=== PATIENT | male | born 1935 | race Caucasian/White ===

== ENCOUNTER 2023-01-24 20:21 | Inpatient (IN) | payer OTHER ==
[~2023-01-24] VITALS: Ht 188 cm; Wt 120.2 kg
[2023-01-24 20:26] VITALS: BP_SYST 149; PULSE 86; RESP 18; TEMP 98; O2SAT 98
[2023-01-24] MEDS ORDERED: NACL 0.9% 1,000 ML IV ONE (20:30)
[2023-01-24 20:58] LABS: BASOPHILS # (AUTO) 0.1 K/uL (0.0-0.2); BASOPHILS % (AUTO) 0.8 % (0.0-2.0); EOSINOPHILS # (AUTO) 0.5 K/uL (0.0-0.4); HEMATOCRIT 43.1 % (36-54); HEMOGLOBIN 13.4 g/dL (14.0-18.0); LYMPHOCYTES # (AUTO) 1.4 K/uL (1.0-5.5); LYMPHOCYTES % (AUTO) 17.5 % (20.5-51.5); MEAN CORPUSCULAR HEMOGLOBIN 30 pg (27-31); MEAN CORPUSCULAR HGB CONC 31 % (32-36); MEAN CORPUSCULAR VOLUME 96 fL (79.0-98.0); MONOCYTES # (AUTO) 0.9 K/uL (0.0-1.0); NEUTROPHILS # (AUTO) 4.9 K/uL (1.8-7.7); NEUTROPHILS % (AUTO) 62.7 % (40.0-70.0); PLATELET COUNT (AUTO) 406 K/uL (130-430); RED BLOOD CELL COUNT(AUTO) 4.49 MIL/uL (4.2-6.2); RED CELL DISTRIBUTION WIDTH 16.6 % (9.0-15.0); WHITE BLOOD COUNT (AUTO) 7.8 K/uL (4.8-10.8)
[2023-01-24 21:11] LABS: ANION GAP 4 (5-15); CALCIUM 9.1 mg/dL (8.4-11.0); CARBON DIOXIDE 35 mmol/L (23-29); CHLORIDE 105 mmol/L (98-107); CREATININE 1.74 mg/dL (0.55-1.30); GLUCOSE 139 mg/dL (74-106); SODIUM SERUM 144 mmol/L (136-145); UREA NITROGEN, BLOOD 25 mg/dL (8-21)
[2023-01-24 21:17] LABS: PROTHROMBIN TIME 10.4 SECS (9.5-12.5)
[2023-01-24 21:19] LABS: ALANINE AMINOTRANSFERASE 27 U/L (12-78); ASPARTATE AMINOTRANSFERASE 26 U/L (10-37); TOTAL BILIRUBIN 0.9 mg/dL (0.0-1.0); TOTAL PROTEIN, SERUM 7.1 g/dL (6.4-8.3)
[2023-01-24 22:08] LABS: INFLUENZA TYPE A negative (NEGATIVE); INFLUENZA TYPE B NEGATIVE (NEGATIVE)
[2023-01-24 22:49] LABS: BILIRUBIN,URINE 1+ (NEGATIVE); BLOOD, URINE NEGATIVE (NEGATIVE); CLARITY/URINE Clear (CLEAR); COLOR,URINE YELLOW (YELLOW); GLUCOSE,URINE NEGATIVE (NEGATIVE); KETONES,URINE NEGATIVE (NEGATIVE); LEUKOCYTE ESTERASE ,URINE NEGATIVE (NEGATIVE); NITRITE, URINE NEGATIVE (NEGATIVE); PH,URINE 6.5 (5.0-8.0); PROTEIN URINE 1+ (NEGATIVE)
[2023-01-24 23:39] LABS: BACTERIA,URINE FEW /HPF (None Seen); RBC,URINE 0-3 /HPF (0-3); WBC,URINE 0-3 /HPF (0-3)
[2023-01-24 23:40] LABS: MUCUS,URINE 3+ /LPF (None Seen)
[2023-01-25] VITALS: BP_SYST 142; PULSE 78; RESP 18; TEMP 97.8; O2SAT 97
[2023-01-25 00:15] VITALS: BP_SYST 133; PULSE 88; RESP 18; TEMP 97.6; O2SAT 97
[2023-01-25] MEDS: D5/0.45 NS 1,000 ML IV SCH (01:49)
[2023-01-25] MEDS ORDERED: FER300L PO (02:40)
[2023-01-25] MEDS ORDERED: TAMS-11 PO (02:40)
[2023-01-25] MEDS ORDERED: ASPI-859 PO (02:40)
[2023-01-25] MEDS ORDERED: IPRA4AER INH (02:40)
[2023-01-25] MEDS ORDERED: MELA3TAB69 PO (02:40)
[2023-01-25] MEDS ORDERED: MULT-1117 PO (02:40)
[2023-01-25] MEDS ORDERED: FURO10SO PO (02:40)
[2023-01-25] MEDS ORDERED: LIP40 PO (02:40)
[2023-01-25] MEDS ORDERED: NOR10 PO (02:40)
[2023-01-25] MEDS ORDERED: BISA10SU61 RC (02:40)
[2023-01-25] MEDS ORDERED: FOLI-43 PO (02:40)
[2023-01-25] MEDS ORDERED: MOM PO (02:40)
[2023-01-25] MEDS ORDERED: BUDE6.9H INH (02:40)
[2023-01-25] MEDS ORDERED: ZINC50TA15 PO (02:40)
[2023-01-25] MEDS ORDERED: IBUP-1969 PO (02:40)
[2023-01-25] MEDS ORDERED: LORazepam 2 MG/ML VIAL IVP ONE (03:15)
[2023-01-25] MEDS ORDERED: FERR-69 PO (06:34)
[2023-01-25] MEDS ORDERED: ZINC220T3 PO (06:36)
[2023-01-25 09:11] LABS: BASOPHILS % (AUTO) 0.5 % (0.0-2.0); EOSINOPHILS # (AUTO) 0.6 K/uL (0.0-0.4); EOSINOPHILS % (AUTO) 8.4 % (0.0-4.0); HEMATOCRIT 44.2 % (36-54); HEMOGLOBIN 13.4 g/dL (14.0-18.0); LYMPHOCYTES # (AUTO) 1.5 K/uL (1.0-5.5); MEAN CORPUSCULAR HEMOGLOBIN 30 pg (27-31); MEAN CORPUSCULAR HGB CONC 30 % (32-36); MEAN CORPUSCULAR VOLUME 98 fL (79.0-98.0); MONOCYTES % (AUTO) 14.1 % (1.7-9.3); NEUTROPHILS # (AUTO) 4.1 K/uL (1.8-7.7); PLATELET COUNT (AUTO) 351 K/uL (130-430); RED BLOOD CELL COUNT(AUTO) 4.52 MIL/uL (4.2-6.2); RED CELL DISTRIBUTION WIDTH 17.3 % (9.0-15.0); WHITE BLOOD COUNT (AUTO) 7.3 K/uL (4.8-10.8)
[2023-01-25 09:16] LABS: ANION GAP 4 (5-15); CALCIUM 8.7 mg/dL (8.4-11.0); CARBON DIOXIDE 33 mmol/L (23-29); CHLORIDE 108 mmol/L (98-107); CREATININE 1.53 mg/dL (0.55-1.30); GLUCOSE 143 mg/dL (74-106); POTASSIUM 4.5 mmol/L (3.5-5.1); SODIUM SERUM 145 mmol/L (136-145); UREA NITROGEN, BLOOD 26 mg/dL (8-21)
[2023-01-25 09:19] LABS: ALANINE AMINOTRANSFERASE 21 U/L (12-78); ALBUMIN 2.8 g/dL (3.4-4.8); ASPARTATE AMINOTRANSFERASE 26 U/L (10-37); TOTAL BILIRUBIN 0.7 mg/dL (0.0-1.0); TOTAL PROTEIN, SERUM 6.6 g/dL (6.4-8.3)
[2023-01-25] MEDS ORDERED: LORazepam 2 MG/ML VIAL IVP PRN (11:15)
[2023-01-25 12:47] VITALS: BP_SYST 142; PULSE 89; RESP 19; TEMP 97.8; O2SAT 97
[2023-01-25 16:12] VITALS: BP_SYST 140; PULSE 82; RESP 18; TEMP 97.6; O2SAT 97
[2023-01-25 20:00] VITALS: BP_SYST 120; PULSE 100; RESP 19; TEMP 97.2; O2SAT 93
[2023-01-25] MEDS ORDERED: HYDROmorphone 1 MG/ML INJ. CARTRIDGE ONE (20:00)
[2023-01-25] MEDS: LORazepam 2 MG/ML VIAL IM PRN (20:08)
[2023-01-25] MEDS: ATORVASTATIN 20 MG TABLET PO SCH (21:00)
[2023-01-26 00:07] VITALS: BP_SYST 140; PULSE 81; RESP 18; TEMP 97.3; O2SAT 97
[2023-01-26 01:53] VITALS: O2SAT 96
[2023-01-26] MEDS: LORazepam 2 MG/ML VIAL IM PRN (02:04)
[2023-01-26 06:28] LABS: BASOPHILS % (AUTO) 0.3 % (0.0-2.0); EOSINOPHILS # (AUTO) 0.5 K/uL (0.0-0.4); EOSINOPHILS % (AUTO) 6.7 % (0.0-4.0); HEMOGLOBIN 13.1 g/dL (14.0-18.0); LYMPHOCYTES # (AUTO) 1.2 K/uL (1.0-5.5); LYMPHOCYTES % (AUTO) 15.8 % (20.5-51.5); MEAN CORPUSCULAR HEMOGLOBIN 30 pg (27-31); MEAN CORPUSCULAR HGB CONC 30 % (32-36); MEAN CORPUSCULAR VOLUME 100 fL (79.0-98.0); MONOCYTES # (AUTO) 1.2 K/uL (0.0-1.0); MONOCYTES % (AUTO) 16.9 % (1.7-9.3); NEUTROPHILS # (AUTO) 4.4 K/uL (1.8-7.7); NEUTROPHILS % (AUTO) 60.3 % (40.0-70.0); PLATELET COUNT (AUTO) 310 K/uL (130-430); RED BLOOD CELL COUNT(AUTO) 4.38 MIL/uL (4.2-6.2); RED CELL DISTRIBUTION WIDTH 17.2 % (9.0-15.0); WHITE BLOOD COUNT (AUTO) 7.3 K/uL (4.8-10.8)
[2023-01-26] MEDS: LORazepam 2 MG/ML VIAL IVP PRN (06:30)
[2023-01-26 07:45] LABS: ANION GAP 10 (5-15); CALCIUM 8.7 mg/dL (8.4-11.0); CARBON DIOXIDE 27 mmol/L (23-29); CHLORIDE 108 mmol/L (98-107); CREATININE 1.51 mg/dL (0.55-1.30); GLUCOSE 131 mg/dL (74-106); POTASSIUM 4.7 mmol/L (3.5-5.1); SODIUM SERUM 145 mmol/L (136-145); UREA NITROGEN, BLOOD 23 mg/dL (8-21)
[2023-01-26 08:00] VITALS: BP_SYST 128; PULSE 88; RESP 18; TEMP 97.9; O2SAT 96
[2023-01-26] MEDS: amLODIPine BESYLATE 10 MG TABLET PO SCH (09:00)
[2023-01-26] MEDS: ASPIRIN 81 MG TABLET(ECOTRIN) PO SCH (09:00)
[2023-01-26] MEDS: TAMSULOSIN HCL 0.4 MG CAP PO SCH (09:00)
[2023-01-26] MEDS: MULTIVITAMINS TAB 1 TABLET PO SCH (09:00)
[2023-01-26] MEDS: FOLIC ACID 1 MG TABLET PO SCH (09:00)
[2023-01-26 11:30] VITALS: BP_SYST 137; PULSE 95; RESP 22; TEMP 97.6; O2SAT 100
[2023-01-26 18:39] VITALS: BP_SYST 141; PULSE 97; RESP 20; TEMP 97.1; O2SAT 91
[2023-01-26] MEDS: ATORVASTATIN 20 MG TABLET PO SCH (20:58)
[2023-01-26 22:52] VITALS: BP_SYST 155; PULSE 92; RESP 20; TEMP 98; O2SAT 92
[2023-01-27] VITALS: BP_SYST 145; PULSE 100; RESP 20; TEMP 97.9; O2SAT 91
[2023-01-27] MEDS: LORazepam 2 MG/ML VIAL IVP PRN ×3 (00:09→16:44)
[2023-01-27 02:14] VITALS: O2SAT 92
[2023-01-27 07:19] LABS: BASOPHILS # (AUTO) 0.1 K/uL (0.0-0.2); BASOPHILS % (AUTO) 0.8 % (0.0-2.0); EOSINOPHILS # (AUTO) 0.6 K/uL (0.0-0.4); EOSINOPHILS % (AUTO) 9.4 % (0.0-4.0); HEMOGLOBIN 13.1 g/dL (14.0-18.0); LYMPHOCYTES # (AUTO) 0.8 K/uL (1.0-5.5); LYMPHOCYTES % (AUTO) 13.9 % (20.5-51.5); MEAN CORPUSCULAR HEMOGLOBIN 30 pg (27-31); MEAN CORPUSCULAR HGB CONC 31 % (32-36); MEAN CORPUSCULAR VOLUME 99 fL (79.0-98.0); MONOCYTES # (AUTO) 0.9 K/uL (0.0-1.0); MONOCYTES % (AUTO) 15.1 % (1.7-9.3); NEUTROPHILS # (AUTO) 3.7 K/uL (1.8-7.7); NEUTROPHILS % (AUTO) 60.8 % (40.0-70.0); PLATELET COUNT (AUTO) 337 K/uL (130-430); RED BLOOD CELL COUNT(AUTO) 4.36 MIL/uL (4.2-6.2); RED CELL DISTRIBUTION WIDTH 17.1 % (9.0-15.0); WHITE BLOOD COUNT (AUTO) 6.1 K/uL (4.8-10.8)
[2023-01-27 07:38] LABS: ANION GAP 5 (5-15); CALCIUM 9.1 mg/dL (8.4-11.0); CARBON DIOXIDE 32 mmol/L (23-29); CHLORIDE 112 mmol/L (98-107); CREATININE 1.32 mg/dL (0.55-1.30); GLUCOSE 112 mg/dL (74-106); POTASSIUM 4.5 mmol/L (3.5-5.1); SODIUM SERUM 149 mmol/L (136-145); UREA NITROGEN, BLOOD 20 mg/dL (8-21)
[2023-01-27] MEDS: D5/0.45 NS 1,000 ML IV SCH ×3 (07:48→11:54)
[2023-01-27] MEDS: FOLIC ACID 1 MG TABLET PO SCH (08:01)
[2023-01-27] MEDS: amLODIPine BESYLATE 10 MG TABLET PO SCH (08:01)
[2023-01-27] MEDS: ASPIRIN 81 MG TABLET(ECOTRIN) PO SCH (08:01)
[2023-01-27] MEDS: MULTIVITAMINS TAB 1 TABLET PO SCH (08:01)
[2023-01-27] MEDS: TAMSULOSIN HCL 0.4 MG CAP PO SCH (08:01)
[2023-01-27 12:02] VITALS: BP_SYST 145; PULSE 118; RESP 22; TEMP 97; O2SAT 94
[2023-01-27 13:54] VITALS: O2SAT 93
[2023-01-27 16:00] VITALS: BP_SYST 154; PULSE 110; RESP 22; TEMP 97.8; O2SAT 96
[2023-01-27] MEDS: ATORVASTATIN 20 MG TABLET PO SCH (21:00)
[2023-01-28 00:44] VITALS: BP_SYST 110; PULSE 66; RESP 19; TEMP 98.4; O2SAT 96
[2023-01-28] MEDS ORDERED: cefTRIAXone 1 GM IVPB PREMIX 50 ML IV ONE (05:31)
[2023-01-28] MEDS: cefTRIAXone 1 GM in D5W 50 ML IV SCH ×2 (05:35→23:04)
[2023-01-28] MEDS: D5/0.45 NS 1,000 ML IV SCH (06:15)
[2023-01-28 08:02] VITALS: BP_SYST 161; RESP 20; TEMP 98.4; O2SAT 95
[2023-01-28] MEDS: ASPIRIN 81 MG TABLET(ECOTRIN) PO SCH (09:00)
[2023-01-28] MEDS: TAMSULOSIN HCL 0.4 MG CAP PO SCH (09:00)
[2023-01-28] MEDS: amLODIPine BESYLATE 10 MG TABLET PO SCH (09:00)
[2023-01-28] MEDS: MULTIVITAMINS TAB 1 TABLET PO SCH (09:00)
[2023-01-28] MEDS: FOLIC ACID 1 MG TABLET PO SCH (09:00)
[2023-01-28 11:30] VITALS: BP_SYST 118; PULSE 95; RESP 20; TEMP 98.1; O2SAT 91
[2023-01-28 16:52] VITALS: BP_SYST 135; PULSE 100; RESP 21; TEMP 98.6; O2SAT 92
[2023-01-28 20:00] VITALS: BP_SYST 145; PULSE 91; RESP 19; TEMP 99; O2SAT 99
[2023-01-28] MEDS: ATORVASTATIN 20 MG TABLET PO SCH (21:00)
[2023-01-29] VITALS (21 sets, daily range): BP systolic 96–163; PULSE 72–110; RESP 12–23; TEMP 96.1–98.1; O2SAT 94–100
[2023-01-29 05:35] LABS: BASOPHILS # (AUTO) 0.1 K/uL (0.0-0.2); BASOPHILS % (AUTO) 1.7 % (0.0-2.0); EOSINOPHILS # (AUTO) 0.5 K/uL (0.0-0.4); EOSINOPHILS % (AUTO) 6.5 % (0.0-4.0); HEMATOCRIT 42.3 % (36-54); HEMOGLOBIN 12.8 g/dL (14.0-18.0); LYMPHOCYTES # (AUTO) 1.2 K/uL (1.0-5.5); LYMPHOCYTES % (AUTO) 16.1 % (20.5-51.5); MEAN CORPUSCULAR HEMOGLOBIN 30 pg (27-31); MEAN CORPUSCULAR HGB CONC 30 % (32-36); MEAN CORPUSCULAR VOLUME 98 fL (79.0-98.0); MONOCYTES # (AUTO) 0.8 K/uL (0.0-1.0); MONOCYTES % (AUTO) 10.6 % (1.7-9.3); NEUTROPHILS # (AUTO) 4.8 K/uL (1.8-7.7); NEUTROPHILS % (AUTO) 65.1 % (40.0-70.0); PLATELET COUNT (AUTO) 327 K/uL (130-430); RED CELL DISTRIBUTION WIDTH 16.8 % (9.0-15.0); WHITE BLOOD COUNT (AUTO) 7.4 K/uL (4.8-10.8)
[2023-01-29 06:13] LABS: ANION GAP 6 (5-15); CALCIUM 9.1 mg/dL (8.4-11.0); CARBON DIOXIDE 34 mmol/L (23-29); CHLORIDE 111 mmol/L (98-107); CREATININE 1.23 mg/dL (0.55-1.30); GLUCOSE 102 mg/dL (74-106); POTASSIUM 4.1 mmol/L (3.5-5.1); SODIUM SERUM 151 mmol/L (136-145); UREA NITROGEN, BLOOD 17 mg/dL (8-21)
[2023-01-29 06:14] LABS: PROTHROMBIN TIME 10.5 SECS (9.5-12.5)
[2023-01-29] MEDS: D5/0.45 NS 1,000 ML IV SCH ×2 (06:33→11:59)
[2023-01-29] MEDS ORDERED: CEFAZOLIN 1 GM IVPB PREMIX 50 ML IV ONE (07:00)
[2023-01-29] MEDS: LORazepam 2 MG/ML VIAL IVP PRN (08:41)
[2023-01-29] MEDS: ASPIRIN 81 MG TABLET(ECOTRIN) PO SCH (08:48)
[2023-01-29] MEDS: amLODIPine BESYLATE 10 MG TABLET PO SCH (08:49)
[2023-01-29] MEDS: TAMSULOSIN HCL 0.4 MG CAP PO SCH (08:49)
[2023-01-29] MEDS: FOLIC ACID 1 MG TABLET PO SCH (08:49)
[2023-01-29] MEDS: MULTIVITAMINS TAB 1 TABLET PO SCH (08:49)
[2023-01-29] MEDS ORDERED: ROCURONIUM BROMIDE 10 MG/ML (ZEMURON) ONE (09:42)
[2023-01-29] MEDS ORDERED: SEVOFLURANE 15 MIN GAS INH ONE (09:42)
[2023-01-29] MEDS ORDERED: PHENYLEPHRINE HCL 10 MG/ML VIAL (NEOSYNEPHRINE) ONE (09:42)
[2023-01-29] MEDS ORDERED: ONDANSETRON HCL 4 MG/2 ML VIAL ONE (09:42)
[2023-01-29] MEDS ORDERED: SIMETHICONE 40 MG/0.6 ML ML ONE (10:01)
[2023-01-29] MEDS ORDERED: PANTOPRAZOLE SODIUM 40 MG/VIAL (PROTONIX) IVP ONE (10:30)
[2023-01-29] MEDS ORDERED: PROPOFOL DRIP 100 ML IV ONE (12:11)
[2023-01-29] MEDS: PROPOFOL DRIP 100 ML IV PRN ×4 (12:30→23:13)
[2023-01-29 15:56] LABS: ABG O2 SAT% ESTIMATE 99.7 % (94.0-100.0); BLOOD GAS BASE EXCESS 4.1 mmol/L (-3.0-3.0); BLOOD GAS HCO3 29.6 mmol/L (21.0-27.0); BLOOD GAS PCO2 47.2 mmHg (32.0-45.0); BLOOD GAS PH 7.415 (7.350-7.450); BLOOD GAS PO2 311.6 mmHg (75.0-100.0)
[2023-01-29 15:57] LABS: ALLEN'S TEST POSITIVE (P)
[2023-01-29] MEDS ORDERED: *TPN PER PHARMACY XX PRN (17:15)
[2023-01-29] MEDS: ATORVASTATIN 20 MG TABLET PO SCH (21:00)
[2023-01-29] MEDS: PANTOPRAZOLE SODIUM 40 MG/VIAL (PROTONIX) IVP SCH (21:28)
[2023-01-29] MEDS: cefTRIAXone 1 GM in D5W 50 ML IV SCH (23:11)
[2023-01-30] VITALS (34 sets, daily range): BP systolic 78–139; PULSE 65–98; RESP 16–20; TEMP 96.5–99.7; O2SAT 96–100
[2023-01-30] MEDS: PROPOFOL DRIP 100 ML IV PRN ×4 (02:50→21:59)
[2023-01-30] MEDS ORDERED: NS 500 ML IV ONE ×2 (03:30)
[2023-01-30 05:15] LABS: BASOPHILS # (AUTO) 0.1 K/uL (0.0-0.2); BASOPHILS % (AUTO) 0.8 % (0.0-2.0); EOSINOPHILS # (AUTO) 0.4 K/uL (0.0-0.4); EOSINOPHILS % (AUTO) 5.4 % (0.0-4.0); HEMATOCRIT 37.3 % (36-54); HEMOGLOBIN 11.5 g/dL (14.0-18.0); LYMPHOCYTES # (AUTO) 1.2 K/uL (1.0-5.5); LYMPHOCYTES % (AUTO) 15.9 % (20.5-51.5); MEAN CORPUSCULAR HEMOGLOBIN 30 pg (27-31); MEAN CORPUSCULAR HGB CONC 31 % (32-36); MEAN CORPUSCULAR VOLUME 96 fL (79.0-98.0); MONOCYTES # (AUTO) 0.7 K/uL (0.0-1.0); MONOCYTES % (AUTO) 9.5 % (1.7-9.3); NEUTROPHILS % (AUTO) 68.4 % (40.0-70.0); PLATELET COUNT (AUTO) 266 K/uL (130-430); RED BLOOD CELL COUNT(AUTO) 3.88 MIL/uL (4.2-6.2); RED CELL DISTRIBUTION WIDTH 16.7 % (9.0-15.0); WHITE BLOOD COUNT (AUTO) 7.3 K/uL (4.8-10.8)
[2023-01-30 05:33] LABS: ALANINE AMINOTRANSFERASE 11 U/L (12-78); ALBUMIN 2.1 g/dL (3.4-4.8); ANION GAP 7 (5-15); ASPARTATE AMINOTRANSFERASE 19 U/L (10-37); CALCIUM 8.5 mg/dL (8.4-11.0); CARBON DIOXIDE 29 mmol/L (23-29); CHLORIDE 112 mmol/L (98-107); CREATININE 1.24 mg/dL (0.55-1.30); GLUCOSE 98 mg/dL (74-106); PHOSPHORUS 2.2 mg/dL (2.7-4.5); POTASSIUM 3.9 mmol/L (3.5-5.1); SODIUM SERUM 148 mmol/L (136-145); TOTAL BILIRUBIN 0.5 mg/dL (0.0-1.0); TOTAL PROTEIN, SERUM 5.2 g/dL (6.4-8.3); TRIGLYCERIDES 130 mg/dL (30-150); UREA NITROGEN, BLOOD 17 mg/dL (8-21)
[2023-01-30] MEDS: amLODIPine BESYLATE 10 MG TABLET PO SCH (09:00)
[2023-01-30] MEDS: FOLIC ACID 1 MG TABLET PO SCH (09:00)
[2023-01-30] MEDS: MULTIVITAMINS TAB 1 TABLET PO SCH (09:00)
[2023-01-30] MEDS: TAMSULOSIN HCL 0.4 MG CAP PO SCH (09:00)
[2023-01-30] MEDS: PANTOPRAZOLE SODIUM 40 MG/VIAL (PROTONIX) IVP SCH ×2 (09:42→20:59)
[2023-01-30] MEDS: ENOXAPARIN SODIUM 40 MG/0.4 ML SYRINGE SUBCUT SCH (09:42)
[2023-01-30] MEDS ORDERED: SEVOFLURANE 15 MIN GAS INH ONE (18:25)
[2023-01-30] MEDS: D5/0.45 NS 1,000 ML IV SCH (19:02)
[2023-01-30] MEDS ORDERED: ONDANSETRON HCL 4 MG/2 ML VIAL IVP PRN (19:15)
[2023-01-30] MEDS ORDERED: HYDROcodone/ACETAMIN 5-325 MG TAB (NORCO/ VICODIN) PO PRN (19:15)
[2023-01-30] MEDS ORDERED: DIATR MEGLU/DIATRIZ SOD 30 ML SOLUTION PO ONE (20:00)
[2023-01-30] MEDS: ATORVASTATIN 20 MG TABLET PO SCH (20:59)
[2023-01-30] MEDS ORDERED: MVI IV SCH ×7 (21:00)
[2023-01-30] MEDS ORDERED: TPN PERIPHERAL IV SCH ×7 (21:00)
[2023-01-30] MEDS ORDERED: [UNRECOGNIZED DRUG - OTHER] IV SCH ×7 (21:00)
[2023-01-30] MEDS ORDERED: K PHOS IV SCH ×7 (21:00)
[2023-01-30] MEDS ORDERED: POTASSIUM CHLORIDE IV SCH ×7 (21:00)
[2023-01-31] VITALS (34 sets, daily range): BP systolic 97–164; PULSE 56–89; RESP 16–18; TEMP 96–98.9; O2SAT 96–98
[2023-01-31] MEDS: cefTRIAXone 1 GM in D5W 50 ML IV SCH ×2 (00:04→23:27)
[2023-01-31] MEDS: PROPOFOL DRIP 100 ML IV PRN ×3 (03:58→15:54)
[2023-01-31 05:30] LABS: BASOPHILS # (AUTO) 0.1 K/uL (0.0-0.2); EOSINOPHILS # (AUTO) 0.2 K/uL (0.0-0.4); EOSINOPHILS % (AUTO) 2.7 % (0.0-4.0); HEMOGLOBIN 11.4 g/dL (14.0-18.0); LYMPHOCYTES # (AUTO) 1.6 K/uL (1.0-5.5); LYMPHOCYTES % (AUTO) 20.1 % (20.5-51.5); MEAN CORPUSCULAR HEMOGLOBIN 30 pg (27-31); MEAN CORPUSCULAR HGB CONC 31 % (32-36); MEAN CORPUSCULAR VOLUME 96 fL (79.0-98.0); MONOCYTES # (AUTO) 0.8 K/uL (0.0-1.0); MONOCYTES % (AUTO) 10.5 % (1.7-9.3); NEUTROPHILS # (AUTO) 5.2 K/uL (1.8-7.7); NEUTROPHILS % (AUTO) 65.7 % (40.0-70.0); PLATELET COUNT (AUTO) 251 K/uL (130-430); RED BLOOD CELL COUNT(AUTO) 3.84 MIL/uL (4.2-6.2); RED CELL DISTRIBUTION WIDTH 16.6 % (9.0-15.0); WHITE BLOOD COUNT (AUTO) 7.9 K/uL (4.8-10.8)
[2023-01-31 06:01] LABS: ALANINE AMINOTRANSFERASE 10 U/L (12-78); ANION GAP 9 (5-15); ASPARTATE AMINOTRANSFERASE 18 U/L (10-37); CALCIUM 8.3 mg/dL (8.4-11.0); CARBON DIOXIDE 27 mmol/L (23-29); CHLORIDE 109 mmol/L (98-107); CREATININE 1.94 mg/dL (0.55-1.30); GLUCOSE 133 mg/dL (74-106); PHOSPHORUS 2.3 mg/dL (2.7-4.5); POTASSIUM 3.7 mmol/L (3.5-5.1); SODIUM SERUM 145 mmol/L (136-145); TOTAL BILIRUBIN 0.5 mg/dL (0.0-1.0); TOTAL PROTEIN, SERUM 5.2 g/dL (6.4-8.3); UREA NITROGEN, BLOOD 23 mg/dL (8-21)
[2023-01-31] MEDS: amLODIPine BESYLATE 10 MG TABLET PO SCH (09:00)
[2023-01-31] MEDS: PANTOPRAZOLE SODIUM 40 MG/VIAL (PROTONIX) IVP SCH ×2 (09:45→20:52)
[2023-01-31] MEDS: ENOXAPARIN SODIUM 40 MG/0.4 ML SYRINGE SUBCUT SCH (09:46)
[2023-01-31] MEDS: FOLIC ACID 1 MG TABLET PO SCH (09:46)
[2023-01-31] MEDS: TAMSULOSIN HCL 0.4 MG CAP PO SCH (09:46)
[2023-01-31] MEDS: MULTIVITAMINS TAB 1 TABLET PO SCH (09:47)
[2023-01-31] MEDS: D5/0.45 NS 1,000 ML IV SCH (18:21)
[2023-01-31] MEDS: ATORVASTATIN 20 MG TABLET PO SCH (20:53)
[2023-01-31] MEDS ORDERED: K PHOS IV SCH ×7 (21:00)
[2023-01-31] MEDS ORDERED: MVI IV SCH ×7 (21:00)
[2023-01-31] MEDS ORDERED: [UNRECOGNIZED DRUG - OTHER] IV SCH ×7 (21:00)
[2023-01-31] MEDS ORDERED: TPN PERIPHERAL IV SCH ×7 (21:00)
[2023-01-31] MEDS ORDERED: POTASSIUM CHLORIDE IV SCH ×7 (21:00)
[2023-02-01] VITALS (36 sets, daily range): BP systolic 96–164; PULSE 46–81; RESP 13–24; TEMP 96–97.2; O2SAT 95–100
[2023-02-01 06:38] LABS: BASOPHILS # (AUTO) 0.1 K/uL (0.0-0.2); BASOPHILS % (AUTO) 0.8 % (0.0-2.0); EOSINOPHILS # (AUTO) 0.3 K/uL (0.0-0.4); EOSINOPHILS % (AUTO) 3.6 % (0.0-4.0); HEMATOCRIT 39.2 % (36-54); HEMOGLOBIN 12.1 g/dL (14.0-18.0); LYMPHOCYTES % (AUTO) 13.2 % (20.5-51.5); MEAN CORPUSCULAR HEMOGLOBIN 30 pg (27-31); MEAN CORPUSCULAR HGB CONC 31 % (32-36); MEAN CORPUSCULAR VOLUME 96 fL (79.0-98.0); MONOCYTES # (AUTO) 0.6 K/uL (0.0-1.0); MONOCYTES % (AUTO) 8.8 % (1.7-9.3); NEUTROPHILS # (AUTO) 5.4 K/uL (1.8-7.7); NEUTROPHILS % (AUTO) 73.6 % (40.0-70.0); PLATELET COUNT (AUTO) 215 K/uL (130-430); RED BLOOD CELL COUNT(AUTO) 4.09 MIL/uL (4.2-6.2); WHITE BLOOD COUNT (AUTO) 7.3 K/uL (4.8-10.8)
[2023-02-01 07:24] LABS: ALANINE AMINOTRANSFERASE 3 U/L (12-78); ANION GAP 9 (5-15); ASPARTATE AMINOTRANSFERASE 20 U/L (10-37); CALCIUM 8.4 mg/dL (8.4-11.0); CARBON DIOXIDE 26 mmol/L (23-29); CHLORIDE 107 mmol/L (98-107); CREATININE 1.72 mg/dL (0.55-1.30); GLUCOSE 151 mg/dL (74-106); PHOSPHORUS 3.2 mg/dL (2.7-4.5); POTASSIUM 3.8 mmol/L (3.5-5.1); SODIUM SERUM 142 mmol/L (136-145); TOTAL BILIRUBIN 0.5 mg/dL (0.0-1.0); TOTAL PROTEIN, SERUM 5.8 g/dL (6.4-8.3); UREA NITROGEN, BLOOD 26 mg/dL (8-21)
[2023-02-01] MEDS ORDERED: FUROSEMIDE 40 MG/4 ML VIAL IVP ONE (07:45)
[2023-02-01 08:31] LABS: ABG O2 SAT% ESTIMATE 97.8 % (94.0-100.0); BLOOD GAS BASE EXCESS -1.1 mmol/L (-3.0-3.0); BLOOD GAS HCO3 24.3 mmol/L (21.0-27.0); BLOOD GAS PO2 108.6 mmHg (75.0-100.0)
[2023-02-01 08:34] LABS: ALLEN'S TEST POSITIVE (P)
[2023-02-01] MEDS: FOLIC ACID 1 MG TABLET PO SCH (08:42)
[2023-02-01] MEDS: PANTOPRAZOLE SODIUM 40 MG/VIAL (PROTONIX) IVP SCH ×2 (08:42→20:41)
[2023-02-01] MEDS: TAMSULOSIN HCL 0.4 MG CAP PO SCH (08:42)
[2023-02-01] MEDS: ENOXAPARIN SODIUM 40 MG/0.4 ML SYRINGE SUBCUT SCH (08:43)
[2023-02-01] MEDS: MULTIVITAMINS TAB 1 TABLET PO SCH (08:43)
[2023-02-01] MEDS: amLODIPine BESYLATE 10 MG TABLET PO SCH (08:43)
[2023-02-01] MEDS: D5/0.45 NS 1,000 ML IV SCH ×2 (10:15→23:28)
[2023-02-01] MEDS ORDERED: LANOLIN ALCOHOL/MO/W.PET/CERES 57 GM CREAM..G. TP SCH (15:15)
[2023-02-01] MEDS: ATORVASTATIN 20 MG TABLET PO SCH (20:41)
[2023-02-01] MEDS: LANOLIN ALCOHOL/MO/W.PET/CERES 57 GM CREAM..G. TP SCH (20:42)
[2023-02-01] MEDS ORDERED: TPN PERIPHERAL IV SCH ×8 (21:00)
[2023-02-01] MEDS ORDERED: SODIUM ACETATE IV SCH ×8 (21:00)
[2023-02-01] MEDS ORDERED: POTASSIUM CHLORIDE IV SCH ×8 (21:00)
[2023-02-01] MEDS ORDERED: [UNRECOGNIZED DRUG - OTHER] IV SCH ×8 (21:00)
[2023-02-01] MEDS: cefTRIAXone 1 GM in D5W 50 ML IV SCH (23:26)
[2023-02-02] VITALS (36 sets, daily range): BP systolic 103–145; PULSE 45–88; RESP 16–25; TEMP 97–97.5; O2SAT 94–98
[2023-02-02 05:44] LABS: BASOPHILS % (AUTO) 0.3 % (0.0-2.0); EOSINOPHILS # (AUTO) 0.2 K/uL (0.0-0.4); EOSINOPHILS % (AUTO) 1.5 % (0.0-4.0); HEMATOCRIT 39.2 % (36-54); LYMPHOCYTES # (AUTO) 0.9 K/uL (1.0-5.5); LYMPHOCYTES % (AUTO) 7.9 % (20.5-51.5); MEAN CORPUSCULAR HEMOGLOBIN 30 pg (27-31); MEAN CORPUSCULAR HGB CONC 31 % (32-36); MEAN CORPUSCULAR VOLUME 97 fL (79.0-98.0); MONOCYTES # (AUTO) 1.3 K/uL (0.0-1.0); MONOCYTES % (AUTO) 11.7 % (1.7-9.3); NEUTROPHILS # (AUTO) 8.5 K/uL (1.8-7.7); NEUTROPHILS % (AUTO) 78.6 % (40.0-70.0); PLATELET COUNT (AUTO) 212 K/uL (130-430); RED BLOOD CELL COUNT(AUTO) 4.06 MIL/uL (4.2-6.2); RED CELL DISTRIBUTION WIDTH 16.5 % (9.0-15.0); WHITE BLOOD COUNT (AUTO) 10.8 K/uL (4.8-10.8)
[2023-02-02 06:09] LABS: ALANINE AMINOTRANSFERASE 4 U/L (12-78); ANION GAP 7 (5-15); ASPARTATE AMINOTRANSFERASE 24 U/L (10-37); CALCIUM 8.4 mg/dL (8.4-11.0); CARBON DIOXIDE 25 mmol/L (23-29); CHLORIDE 105 mmol/L (98-107); CREATININE 1.71 mg/dL (0.55-1.30); GLUCOSE 177 mg/dL (74-106); PHOSPHORUS 3.4 mg/dL (2.7-4.5); POTASSIUM 4.6 mmol/L (3.5-5.1); SODIUM SERUM 137 mmol/L (136-145); TOTAL BILIRUBIN 0.3 mg/dL (0.0-1.0); TOTAL PROTEIN, SERUM 5.9 g/dL (6.4-8.3); UREA NITROGEN, BLOOD 32 mg/dL (8-21)
[2023-02-02] MEDS: TAMSULOSIN HCL 0.4 MG CAP PO SCH (08:40)
[2023-02-02] MEDS: PANTOPRAZOLE SODIUM 40 MG/VIAL (PROTONIX) IVP SCH ×2 (08:41→20:41)
[2023-02-02] MEDS: MULTIVITAMINS TAB 1 TABLET PO SCH (08:41)
[2023-02-02] MEDS: FOLIC ACID 1 MG TABLET PO SCH (08:41)
[2023-02-02] MEDS: amLODIPine BESYLATE 10 MG TABLET PO SCH (08:43)
[2023-02-02] MEDS: ENOXAPARIN SODIUM 40 MG/0.4 ML SYRINGE SUBCUT SCH (08:45)
[2023-02-02] MEDS: LANOLIN ALCOHOL/MO/W.PET/CERES 57 GM CREAM..G. TP SCH ×2 (08:53→20:41)
[2023-02-02] MEDS ORDERED: FUROSEMIDE 40 MG/4 ML VIAL IVP ONE (10:00)
[2023-02-02] MEDS: ATORVASTATIN 20 MG TABLET PO SCH (20:41)
[2023-02-02] MEDS: HEPARIN SODIUM,PORCINE 5,000 UNITS/ML VIAL SUBCUT SCH (20:41)
[2023-02-02] MEDS: cefTRIAXone 1 GM in D5W 50 ML IV SCH (23:29)
[2023-02-03] VITALS (32 sets, daily range): BP systolic 103–173; PULSE 52–112; RESP 16–29; TEMP 97.1–97.5; O2SAT 90–100
[2023-02-03] MEDS: D5/0.45 NS 1,000 ML IV SCH ×2 (02:57→22:11)
[2023-02-03 04:02] LABS: BASOPHILS % (AUTO) 0.5 % (0.0-2.0); EOSINOPHILS # (AUTO) 0.3 K/uL (0.0-0.4); EOSINOPHILS % (AUTO) 3.2 % (0.0-4.0); HEMATOCRIT 36.9 % (36-54); HEMOGLOBIN 11.5 g/dL (14.0-18.0); LYMPHOCYTES # (AUTO) 1.1 K/uL (1.0-5.5); LYMPHOCYTES % (AUTO) 13.4 % (20.5-51.5); MEAN CORPUSCULAR HEMOGLOBIN 30 pg (27-31); MEAN CORPUSCULAR HGB CONC 31 % (32-36); MEAN CORPUSCULAR VOLUME 96 fL (79.0-98.0); MONOCYTES # (AUTO) 0.8 K/uL (0.0-1.0); NEUTROPHILS % (AUTO) 72.9 % (40.0-70.0); PLATELET COUNT (AUTO) 210 K/uL (130-430); RED BLOOD CELL COUNT(AUTO) 3.85 MIL/uL (4.2-6.2); RED CELL DISTRIBUTION WIDTH 16.9 % (9.0-15.0); WHITE BLOOD COUNT (AUTO) 8.2 K/uL (4.8-10.8)
[2023-02-03 04:20] LABS: ANION GAP 9 (5-15); CALCIUM 8.1 mg/dL (8.4-11.0); CARBON DIOXIDE 25 mmol/L (23-29); CHLORIDE 103 mmol/L (98-107); GLUCOSE 214 mg/dL (74-106); POTASSIUM 4.5 mmol/L (3.5-5.1); SODIUM SERUM 137 mmol/L (136-145); UREA NITROGEN, BLOOD 32 mg/dL (8-21)
[2023-02-03] MEDS: PANTOPRAZOLE SODIUM 40 MG/VIAL (PROTONIX) IVP SCH ×2 (08:25→21:07)
[2023-02-03] MEDS: FOLIC ACID 1 MG TABLET PO SCH (08:25)
[2023-02-03] MEDS: MULTIVITAMINS TAB 1 TABLET PO SCH (08:25)
[2023-02-03] MEDS: TAMSULOSIN HCL 0.4 MG CAP PO SCH (08:25)
[2023-02-03] MEDS: FUROSEMIDE 40 MG/4 ML VIAL IVP SCH (08:26)
[2023-02-03] MEDS: HEPARIN SODIUM,PORCINE 5,000 UNITS/ML VIAL SUBCUT SCH ×2 (08:28→21:08)
[2023-02-03] MEDS: LANOLIN ALCOHOL/MO/W.PET/CERES 57 GM CREAM..G. TP SCH ×2 (08:39→21:07)
[2023-02-03] MEDS: amLODIPine BESYLATE 10 MG TABLET PO SCH (09:06)
[2023-02-03] MEDS: MORPHINE 4 MG INJ. 4 MG/ML VIAL IVP PRN (12:03)
[2023-02-03] MEDS ORDERED: RACEPINEPHRINE HCL 0.5 ML VIAL.NEB INH ONE (12:13)
[2023-02-03] MEDS ORDERED: ETOMIDATE 20 MG/ 10 ML VIAL (AMIDATE) ONE ×2 (12:35→13:00)
[2023-02-03] MEDS ORDERED: SUCCINYLCHOLINE CHLORIDE 20 MG/ML(QUELICIN) ONE (13:00)
[2023-02-03] MEDS: ATORVASTATIN 20 MG TABLET PO SCH (21:07)
[2023-02-03] MEDS: DOPamine PREMIX 250 ML IV PRN (22:26)
[2023-02-03] MEDS: cefTRIAXone 1 GM in D5W 50 ML IV SCH (23:19)
[2023-02-03] MEDS ORDERED: cefTRIAXone 1 GM in D5W 50 ML IV SCH (23:45)
[2023-02-04] VITALS (36 sets, daily range): BP systolic 113–156; PULSE 56–79; RESP 17–28; TEMP 97.2–98.8; O2SAT 94–97
[2023-02-04 05:33] LABS: BASOPHILS % (AUTO) 0.4 % (0.0-2.0); EOSINOPHILS # (AUTO) 0.3 K/uL (0.0-0.4); EOSINOPHILS % (AUTO) 3.8 % (0.0-4.0); HEMATOCRIT 34.1 % (36-54); HEMOGLOBIN 10.8 g/dL (14.0-18.0); LYMPHOCYTES # (AUTO) 0.5 K/uL (1.0-5.5); LYMPHOCYTES % (AUTO) 6.6 % (20.5-51.5); MEAN CORPUSCULAR HEMOGLOBIN 30 pg (27-31); MEAN CORPUSCULAR HGB CONC 32 % (32-36); MEAN CORPUSCULAR VOLUME 95 fL (79.0-98.0); MONOCYTES # (AUTO) 0.9 K/uL (0.0-1.0); MONOCYTES % (AUTO) 11.5 % (1.7-9.3); NEUTROPHILS # (AUTO) 5.8 K/uL (1.8-7.7); NEUTROPHILS % (AUTO) 77.7 % (40.0-70.0); PLATELET COUNT (AUTO) 228 K/uL (130-430); RED BLOOD CELL COUNT(AUTO) 3.61 MIL/uL (4.2-6.2); RED CELL DISTRIBUTION WIDTH 16.5 % (9.0-15.0); WHITE BLOOD COUNT (AUTO) 7.5 K/uL (4.8-10.8)
[2023-02-04 05:58] LABS: ALANINE AMINOTRANSFERASE 17 U/L (12-78); ALBUMIN 1.8 g/dL (3.4-4.8); ANION GAP 9 (5-15); ASPARTATE AMINOTRANSFERASE 21 U/L (10-37); CALCIUM 8.2 mg/dL (8.4-11.0); CARBON DIOXIDE 26 mmol/L (23-29); CHLORIDE 102 mmol/L (98-107); CREATININE 1.67 mg/dL (0.55-1.30); GLUCOSE 194 mg/dL (74-106); POTASSIUM 4.2 mmol/L (3.5-5.1); SODIUM SERUM 137 mmol/L (136-145); TOTAL BILIRUBIN 0.3 mg/dL (0.0-1.0); TOTAL PROTEIN, SERUM 5.7 g/dL (6.4-8.3); UREA NITROGEN, BLOOD 33 mg/dL (8-21)
[2023-02-04] MEDS: FUROSEMIDE 40 MG/4 ML VIAL IVP SCH (08:14)
[2023-02-04] MEDS: PANTOPRAZOLE SODIUM 40 MG/VIAL (PROTONIX) IVP SCH ×2 (08:14→20:24)
[2023-02-04] MEDS: MULTIVITAMINS TAB 1 TABLET PO SCH (08:17)
[2023-02-04] MEDS: FOLIC ACID 1 MG TABLET PO SCH (08:17)
[2023-02-04] MEDS: HEPARIN SODIUM,PORCINE 5,000 UNITS/ML VIAL SUBCUT SCH ×2 (08:17→20:24)
[2023-02-04] MEDS: TAMSULOSIN HCL 0.4 MG CAP PO SCH (08:17)
[2023-02-04] MEDS: amLODIPine BESYLATE 10 MG TABLET PO SCH (08:17)
[2023-02-04] MEDS: LANOLIN ALCOHOL/MO/W.PET/CERES 57 GM CREAM..G. TP SCH ×2 (08:51→20:25)
[2023-02-04] MEDS: LORazepam 2 MG/ML VIAL IVP PRN (11:25)
[2023-02-04] MEDS: D5/0.45 NS 1,000 ML IV SCH (18:30)
[2023-02-04] MEDS: ATORVASTATIN 20 MG TABLET PO SCH (20:24)
[2023-02-04] MEDS: DOPamine PREMIX 250 ML IV PRN (20:50)
[2023-02-04] MEDS: cefTRIAXone 1 GM in D5W 50 ML IV SCH (23:01)
[2023-02-05] VITALS (33 sets, daily range): BP systolic 119–171; PULSE 53–79; RESP 16–27; TEMP 96.8–98.5; O2SAT 93–98
[2023-02-05 05:53] LABS: BASOPHILS % (AUTO) 0.6 % (0.0-2.0); EOSINOPHILS # (AUTO) 0.2 K/uL (0.0-0.4); EOSINOPHILS % (AUTO) 2.5 % (0.0-4.0); HEMATOCRIT 35.8 % (36-54); HEMOGLOBIN 10.9 g/dL (14.0-18.0); LYMPHOCYTES # (AUTO) 0.6 K/uL (1.0-5.5); LYMPHOCYTES % (AUTO) 7.7 % (20.5-51.5); MEAN CORPUSCULAR HEMOGLOBIN 29 pg (27-31); MEAN CORPUSCULAR HGB CONC 30 % (32-36); MEAN CORPUSCULAR VOLUME 95 fL (79.0-98.0); MONOCYTES # (AUTO) 0.8 K/uL (0.0-1.0); NEUTROPHILS # (AUTO) 5.8 K/uL (1.8-7.7); NEUTROPHILS % (AUTO) 78.2 % (40.0-70.0); PLATELET COUNT (AUTO) 247 K/uL (130-430); RED BLOOD CELL COUNT(AUTO) 3.78 MIL/uL (4.2-6.2); RED CELL DISTRIBUTION WIDTH 16.4 % (9.0-15.0); WHITE BLOOD COUNT (AUTO) 7.4 K/uL (4.8-10.8)
[2023-02-05 06:22] LABS: ANION GAP 8 (5-15); CALCIUM 8.4 mg/dL (8.4-11.0); CARBON DIOXIDE 26 mmol/L (23-29); CHLORIDE 102 mmol/L (98-107); CREATININE 1.44 mg/dL (0.55-1.30); GLUCOSE 185 mg/dL (74-106); POTASSIUM 4.5 mmol/L (3.5-5.1); SODIUM SERUM 136 mmol/L (136-145); UREA NITROGEN, BLOOD 29 mg/dL (8-21)
[2023-02-05] MEDS: TAMSULOSIN HCL 0.4 MG CAP PO SCH (08:25)
[2023-02-05] MEDS: LANOLIN ALCOHOL/MO/W.PET/CERES 57 GM CREAM..G. TP SCH ×2 (08:25→20:10)
[2023-02-05] MEDS: MULTIVITAMINS TAB 1 TABLET PO SCH (08:25)
[2023-02-05] MEDS: amLODIPine BESYLATE 10 MG TABLET PO SCH (08:26)
[2023-02-05] MEDS: FOLIC ACID 1 MG TABLET PO SCH (08:26)
[2023-02-05] MEDS: PANTOPRAZOLE SODIUM 40 MG/VIAL (PROTONIX) IVP SCH ×2 (08:27→20:09)
[2023-02-05] MEDS: FUROSEMIDE 40 MG/4 ML VIAL IVP SCH (08:27)
[2023-02-05] MEDS: HEPARIN SODIUM,PORCINE 5,000 UNITS/ML VIAL SUBCUT SCH ×2 (08:28→20:10)
[2023-02-05] MEDS: D5/0.45 NS 1,000 ML IV SCH (13:26)
[2023-02-05] MEDS: ATORVASTATIN 20 MG TABLET PO SCH (20:09)
[2023-02-05] MEDS: cefTRIAXone 1 GM in D5W 50 ML IV SCH (23:44)
[2023-02-06] VITALS (37 sets, daily range): BP systolic 120–152; PULSE 45–72; RESP 16–26; TEMP 94.1–97.8; O2SAT 91–98
[2023-02-06 06:03] LABS: BASOPHILS % (AUTO) 0.7 % (0.0-2.0); EOSINOPHILS # (AUTO) 0.3 K/uL (0.0-0.4); EOSINOPHILS % (AUTO) 5.2 % (0.0-4.0); HEMATOCRIT 32.8 % (36-54); HEMOGLOBIN 11.3 g/dL (14.0-18.0); LYMPHOCYTES # (AUTO) 0.9 K/uL (1.0-5.5); LYMPHOCYTES % (AUTO) 13.5 % (20.5-51.5); MEAN CORPUSCULAR HEMOGLOBIN 33 pg (27-31); MEAN CORPUSCULAR HGB CONC 35 % (32-36); MEAN CORPUSCULAR VOLUME 95 fL (79.0-98.0); MONOCYTES # (AUTO) 0.9 K/uL (0.0-1.0); MONOCYTES % (AUTO) 13.1 % (1.7-9.3); NEUTROPHILS # (AUTO) 4.4 K/uL (1.8-7.7); NEUTROPHILS % (AUTO) 67.5 % (40.0-70.0); PLATELET COUNT (AUTO) 254 K/uL (130-430); RED BLOOD CELL COUNT(AUTO) 3.44 MIL/uL (4.2-6.2); RED CELL DISTRIBUTION WIDTH 16.6 % (9.0-15.0); WHITE BLOOD COUNT (AUTO) 6.5 K/uL (4.8-10.8)
[2023-02-06 06:26] LABS: ALANINE AMINOTRANSFERASE 25 U/L (12-78); ALBUMIN 1.7 g/dL (3.4-4.8); ANION GAP 7 (5-15); ASPARTATE AMINOTRANSFERASE 21 U/L (10-37); CALCIUM 8.7 mg/dL (8.4-11.0); CARBON DIOXIDE 31 mmol/L (23-29); CHLORIDE 102 mmol/L (98-107); CREATININE 1.35 mg/dL (0.55-1.30); GLUCOSE 162 mg/dL (74-106); POTASSIUM 4.4 mmol/L (3.5-5.1); SODIUM SERUM 140 mmol/L (136-145); TOTAL BILIRUBIN 0.2 mg/dL (0.0-1.0); TOTAL PROTEIN, SERUM 5.9 g/dL (6.4-8.3); UREA NITROGEN, BLOOD 24 mg/dL (8-21)
[2023-02-06] MEDS: PANTOPRAZOLE SODIUM 40 MG/VIAL (PROTONIX) IVP SCH ×2 (07:47→20:26)
[2023-02-06] MEDS: FUROSEMIDE 40 MG/4 ML VIAL IVP SCH (07:47)
[2023-02-06] MEDS: FOLIC ACID 1 MG TABLET PO SCH (07:49)
[2023-02-06] MEDS: TAMSULOSIN HCL 0.4 MG CAP PO SCH (07:49)
[2023-02-06] MEDS: HEPARIN SODIUM,PORCINE 5,000 UNITS/ML VIAL SUBCUT SCH ×2 (07:50→20:27)
[2023-02-06] MEDS: MULTIVITAMINS TAB 1 TABLET PO SCH (07:50)
[2023-02-06] MEDS: amLODIPine BESYLATE 10 MG TABLET PO SCH (07:50)
[2023-02-06] MEDS: LANOLIN ALCOHOL/MO/W.PET/CERES 57 GM CREAM..G. TP SCH ×2 (07:51→20:28)
[2023-02-06] MEDS: D5/0.45 NS 1,000 ML IV SCH (07:51)
[2023-02-06] MEDS: DOPamine PREMIX 250 ML IV PRN (09:18)
[2023-02-06] MEDS ORDERED: NS IRRIG SOLN 1000 ML IR ONE (09:40)
[2023-02-06] MEDS ORDERED: fentaNYL CITRATE/PF 100 MCG/2 ML AMP ONE (09:40)
[2023-02-06] MEDS ORDERED: SEVOFLURANE 15 MIN GAS INH ONE (09:40)
[2023-02-06] MEDS ORDERED: MIDAZOLAM HCL/PF 2 MG/2 ML SYRINGE ONE (09:40)
[2023-02-06] MEDS ORDERED: ROCURONIUM BROMIDE 10 MG/ML (ZEMURON) ONE (09:40)
[2023-02-06] MEDS: MORPHINE 4 MG INJ. 4 MG/ML VIAL IVP PRN (14:45)
[2023-02-06] MEDS: LORazepam 2 MG/ML VIAL IVP PRN (18:33)
[2023-02-06] MEDS: ATORVASTATIN 20 MG TABLET PO SCH (20:27)
[2023-02-07] VITALS (36 sets, daily range): BP systolic 75–132; PULSE 43–99; RESP 16–34; TEMP 96.7–98.6; O2SAT 93–100
[2023-02-07 05:30] LABS: BASOPHILS # (AUTO) 0.1 K/uL (0.0-0.2); BASOPHILS % (AUTO) 0.8 % (0.0-2.0); EOSINOPHILS # (AUTO) 0.4 K/uL (0.0-0.4); EOSINOPHILS % (AUTO) 5.1 % (0.0-4.0); HEMOGLOBIN 11.6 g/dL (14.0-18.0); LYMPHOCYTES # (AUTO) 0.7 K/uL (1.0-5.5); MEAN CORPUSCULAR HEMOGLOBIN 29 pg (27-31); MEAN CORPUSCULAR HGB CONC 31 % (32-36); MEAN CORPUSCULAR VOLUME 94 fL (79.0-98.0); MONOCYTES # (AUTO) 0.8 K/uL (0.0-1.0); MONOCYTES % (AUTO) 11.6 % (1.7-9.3); NEUTROPHILS # (AUTO) 5.1 K/uL (1.8-7.7); NEUTROPHILS % (AUTO) 72.5 % (40.0-70.0); PLATELET COUNT (AUTO) 270 K/uL (130-430); RED BLOOD CELL COUNT(AUTO) 3.94 MIL/uL (4.2-6.2); RED CELL DISTRIBUTION WIDTH 16.5 % (9.0-15.0)
[2023-02-07 06:02] LABS: ANION GAP 8 (5-15); CALCIUM 8.8 mg/dL (8.4-11.0); CARBON DIOXIDE 29 mmol/L (23-29); CHLORIDE 102 mmol/L (98-107); CREATININE 1.38 mg/dL (0.55-1.30); GLUCOSE 192 mg/dL (74-106); POTASSIUM 4.1 mmol/L (3.5-5.1); SODIUM SERUM 139 mmol/L (136-145); UREA NITROGEN, BLOOD 26 mg/dL (8-21)
[2023-02-07] MEDS: PANTOPRAZOLE SODIUM 40 MG/VIAL (PROTONIX) IVP SCH (08:38)
[2023-02-07] MEDS: FUROSEMIDE 40 MG/4 ML VIAL IVP SCH (08:39)
[2023-02-07] MEDS: FOLIC ACID 1 MG TABLET PO SCH (08:40)
[2023-02-07] MEDS: TAMSULOSIN HCL 0.4 MG CAP PO SCH (08:42)
[2023-02-07] MEDS: MULTIVITAMINS TAB 1 TABLET PO SCH (08:42)
[2023-02-07] MEDS: amLODIPine BESYLATE 10 MG TABLET PO SCH (08:42)
[2023-02-07] MEDS: HEPARIN SODIUM,PORCINE 5,000 UNITS/ML VIAL SUBCUT SCH ×2 (08:44→20:31)
[2023-02-07] MEDS: LANOLIN ALCOHOL/MO/W.PET/CERES 57 GM CREAM..G. TP SCH ×2 (08:57→20:32)
[2023-02-07] MEDS: LORazepam 2 MG/ML VIAL IVP PRN (11:17)
[2023-02-07] MEDS ORDERED: MORPHINE SULFATE IN 0.9 % NACL 100 ML IV PRN (14:00)
[2023-02-07] MEDS ORDERED: NALOXONE HCL 0.4 MG/ML AMP (NARCAN) IVP PRN ×2 (14:00→14:45)
[2023-02-07] MEDS ORDERED: D5/0.45 NS 1,000 ML IV SCH (14:45)
[2023-02-07] MEDS ORDERED: ONDANSETRON HCL 4 MG/2 ML VIAL IVP PRN (14:45)
[2023-02-07] MEDS ORDERED: DOPamine PREMIX 250 ML IV PRN (14:45)
[2023-02-07] MEDS: ATORVASTATIN 20 MG TABLET PO SCH (20:31)
[2023-02-07] MEDS ORDERED: PANTOPRAZOLE SODIUM 40 MG/VIAL (PROTONIX) IVP SCH (21:00)
[2023-02-08] VITALS (34 sets, daily range): BP systolic 99–158; PULSE 52–142; RESP 16–33; TEMP 96.8–98.5; O2SAT 74–99
[2023-02-08 05:35] LABS: BASOPHILS # (AUTO) 0.2 K/uL (0.0-0.2); BASOPHILS % (AUTO) 2.2 % (0.0-2.0); EOSINOPHILS % (AUTO) 0.2 % (0.0-4.0); HEMOGLOBIN 10.7 g/dL (14.0-18.0); LYMPHOCYTES # (AUTO) 1.6 K/uL (1.0-5.5); LYMPHOCYTES % (AUTO) 19.4 % (20.5-51.5); MEAN CORPUSCULAR HEMOGLOBIN 30 pg (27-31); MEAN CORPUSCULAR HGB CONC 32 % (32-36); MEAN CORPUSCULAR VOLUME 94 fL (79.0-98.0); MONOCYTES # (AUTO) 0.9 K/uL (0.0-1.0); MONOCYTES % (AUTO) 10.8 % (1.7-9.3); NEUTROPHILS # (AUTO) 5.4 K/uL (1.8-7.7); NEUTROPHILS % (AUTO) 67.4 % (40.0-70.0); PLATELET COUNT (AUTO) 252 K/uL (130-430); RED BLOOD CELL COUNT(AUTO) 3.63 MIL/uL (4.2-6.2); RED CELL DISTRIBUTION WIDTH 16.3 % (9.0-15.0)
[2023-02-08 06:27] LABS: ANION GAP 9 (5-15); CARBON DIOXIDE 27 mmol/L (23-29); CHLORIDE 102 mmol/L (98-107); CREATININE 2.51 mg/dL (0.55-1.30); GLUCOSE 188 mg/dL (74-106); POTASSIUM 4.5 mmol/L (3.5-5.1); SODIUM SERUM 138 mmol/L (136-145); UREA NITROGEN, BLOOD 42 mg/dL (8-21)
[2023-02-08] MEDS ORDERED: TAMSULOSIN HCL 0.4 MG CAP PO SCH (09:00)
[2023-02-08] MEDS ORDERED: FUROSEMIDE 40 MG/4 ML VIAL IVP SCH (09:00)
[2023-02-08] MEDS: MULTIVITAMINS TAB 1 TABLET PO SCH (09:03)
[2023-02-08] MEDS: amLODIPine BESYLATE 10 MG TABLET PO SCH (09:03)
[2023-02-08] MEDS: FOLIC ACID 1 MG TABLET PO SCH (09:03)
[2023-02-08] MEDS: LANOLIN ALCOHOL/MO/W.PET/CERES 57 GM CREAM..G. TP SCH ×2 (09:05→21:09)
[2023-02-08] MEDS ORDERED: PANTOPRAZOLE SODIUM 40 MG/VIAL (PROTONIX) IVP ONE (09:45)
[2023-02-08] MEDS: NACL 0.9% 1,000 ML IV SCH ×2 (10:03→21:09)
[2023-02-08] MEDS: HEPARIN SODIUM,PORCINE 5,000 UNITS/ML VIAL SUBCUT SCH ×2 (10:10→21:11)
[2023-02-08] MEDS: LORazepam 2 MG/ML VIAL IVP PRN ×3 (13:28→21:11)
[2023-02-08] MEDS: MORPHINE 4 MG INJ. 4 MG/ML VIAL IVP PRN (14:07)
[2023-02-08] MEDS: HYDROcodone/ACETAMIN 5-325 MG TAB (NORCO/ VICODIN) PO PRN (16:19)
[2023-02-08] MEDS: ATORVASTATIN 20 MG TABLET PO SCH (21:10)
[2023-02-09] VITALS (34 sets, daily range): BP systolic 97–156; PULSE 83–114; RESP 16–28; TEMP 97.7–99.7; O2SAT 90–98
[2023-02-09] MEDS: MORPHINE 4 MG INJ. 4 MG/ML VIAL IVP PRN ×3 (00:51→18:31)
[2023-02-09] MEDS: LORazepam 2 MG/ML VIAL IVP PRN ×2 (01:15→10:48)
[2023-02-09 05:47] LABS: ANION GAP 7 (5-15); CALCIUM 8.3 mg/dL (8.4-11.0); CARBON DIOXIDE 31 mmol/L (23-29); CHLORIDE 103 mmol/L (98-107); CREATININE 2.29 mg/dL (0.55-1.30); GLUCOSE 106 mg/dL (74-106); POTASSIUM 4.7 mmol/L (3.5-5.1); SODIUM SERUM 141 mmol/L (136-145); UREA NITROGEN, BLOOD 41 mg/dL (8-21)
[2023-02-09 05:50] LABS: BASOPHILS # (AUTO) 0.1 K/uL (0.0-0.2); BASOPHILS % (AUTO) 0.6 % (0.0-2.0); EOSINOPHILS # (AUTO) 0.1 K/uL (0.0-0.4); EOSINOPHILS % (AUTO) 0.8 % (0.0-4.0); HEMATOCRIT 34.5 % (36-54); HEMOGLOBIN 10.7 g/dL (14.0-18.0); LYMPHOCYTES # (AUTO) 1.5 K/uL (1.0-5.5); LYMPHOCYTES % (AUTO) 14.4 % (20.5-51.5); MEAN CORPUSCULAR HEMOGLOBIN 29 pg (27-31); MEAN CORPUSCULAR HGB CONC 31 % (32-36); MEAN CORPUSCULAR VOLUME 95 fL (79.0-98.0); MONOCYTES # (AUTO) 1.1 K/uL (0.0-1.0); MONOCYTES % (AUTO) 10.4 % (1.7-9.3); NEUTROPHILS # (AUTO) 7.6 K/uL (1.8-7.7); NEUTROPHILS % (AUTO) 73.8 % (40.0-70.0); PLATELET COUNT (AUTO) 288 K/uL (130-430); RED BLOOD CELL COUNT(AUTO) 3.64 MIL/uL (4.2-6.2); RED CELL DISTRIBUTION WIDTH 16.6 % (9.0-15.0); WHITE BLOOD COUNT (AUTO) 10.3 K/uL (4.8-10.8)
[2023-02-09] MEDS: PANTOPRAZOLE SODIUM 40 MG/VIAL (PROTONIX) IVP SCH (09:20)
[2023-02-09] MEDS: FOLIC ACID 1 MG TABLET PO SCH (09:20)
[2023-02-09] MEDS: MULTIVITAMINS TAB 1 TABLET PO SCH (09:20)
[2023-02-09] MEDS: amLODIPine BESYLATE 10 MG TABLET PO SCH (09:21)
[2023-02-09] MEDS: HEPARIN SODIUM,PORCINE 5,000 UNITS/ML VIAL SUBCUT SCH ×2 (09:24→20:47)
[2023-02-09] MEDS: LANOLIN ALCOHOL/MO/W.PET/CERES 57 GM CREAM..G. TP SCH ×2 (09:25→20:45)
[2023-02-09] MEDS: NACL 0.9% 1,000 ML IV SCH ×2 (10:18→20:34)
[2023-02-09] MEDS ORDERED: MORPHINE 4 MG INJ. 4 MG/ML VIAL IVP PRN (13:00)
[2023-02-09] MEDS: ATORVASTATIN 20 MG TABLET PO SCH (20:45)
[2023-02-10] VITALS (29 sets, daily range): BP systolic 114–146; PULSE 77–111; RESP 13–41; TEMP 97.8–99.6; O2SAT 90–97
[2023-02-10] MEDS: LORazepam 2 MG/ML VIAL IVP PRN ×3 (05:48→13:42)
[2023-02-10 06:07] LABS: BASOPHILS # (AUTO) 0.1 K/uL (0.0-0.2); BASOPHILS % (AUTO) 0.6 % (0.0-2.0); EOSINOPHILS # (AUTO) 0.1 K/uL (0.0-0.4); EOSINOPHILS % (AUTO) 1.3 % (0.0-4.0); HEMOGLOBIN 10.1 g/dL (14.0-18.0); LYMPHOCYTES # (AUTO) 1.6 K/uL (1.0-5.5); LYMPHOCYTES % (AUTO) 14.3 % (20.5-51.5); MEAN CORPUSCULAR HEMOGLOBIN 29 pg (27-31); MEAN CORPUSCULAR HGB CONC 30 % (32-36); MEAN CORPUSCULAR VOLUME 96 fL (79.0-98.0); MONOCYTES # (AUTO) 0.9 K/uL (0.0-1.0); MONOCYTES % (AUTO) 7.8 % (1.7-9.3); NEUTROPHILS # (AUTO) 8.6 K/uL (1.8-7.7); PLATELET COUNT (AUTO) 344 K/uL (130-430); RED BLOOD CELL COUNT(AUTO) 3.53 MIL/uL (4.2-6.2); RED CELL DISTRIBUTION WIDTH 17.2 % (9.0-15.0)
[2023-02-10 07:15] LABS: ANION GAP 8 (5-15); CALCIUM 8.4 mg/dL (8.4-11.0); CARBON DIOXIDE 29 mmol/L (23-29); CHLORIDE 105 mmol/L (98-107); CREATININE 2.12 mg/dL (0.55-1.30); GLUCOSE 175 mg/dL (74-106); SODIUM SERUM 142 mmol/L (136-145); UREA NITROGEN, BLOOD 43 mg/dL (8-21)
[2023-02-10] MEDS: MORPHINE 4 MG INJ. 4 MG/ML VIAL IVP PRN ×3 (07:35→14:54)
[2023-02-10] MEDS: NACL 0.9% 1,000 ML IV SCH ×2 (08:00→19:38)
[2023-02-10 08:38] LABS: WHITE BLOOD COUNT (AUTO) 11.3 K/uL (4.8-10.8)
[2023-02-10] MEDS: MULTIVITAMINS TAB 1 TABLET PO SCH (09:12)
[2023-02-10] MEDS: FOLIC ACID 1 MG TABLET PO SCH (09:12)
[2023-02-10] MEDS: amLODIPine BESYLATE 10 MG TABLET PO SCH (09:13)
[2023-02-10] MEDS: LANOLIN ALCOHOL/MO/W.PET/CERES 57 GM CREAM..G. TP SCH ×2 (09:14→21:44)
[2023-02-10] MEDS: HEPARIN SODIUM,PORCINE 5,000 UNITS/ML VIAL SUBCUT SCH ×2 (09:17→21:44)
[2023-02-10] MEDS: PANTOPRAZOLE SODIUM 40 MG/VIAL (PROTONIX) IVP SCH (09:22)
[2023-02-10] MEDS: ATORVASTATIN 20 MG TABLET PO SCH (21:41)
[2023-02-11] VITALS (20 sets, daily range): BP systolic 110–156; PULSE 68–114; RESP 18–20; TEMP 97.9–100.9; O2SAT 90–98
[2023-02-11] MEDS: MORPHINE 4 MG INJ. 4 MG/ML VIAL IVP PRN (01:24)
[2023-02-11] MEDS: NACL 0.9% 1,000 ML IV SCH ×2 (06:17→17:13)
[2023-02-11 07:54] LABS: BASOPHILS % (AUTO) 0.3 % (0.0-2.0); EOSINOPHILS # (AUTO) 0.1 K/uL (0.0-0.4); EOSINOPHILS % (AUTO) 0.9 % (0.0-4.0); HEMATOCRIT 31.3 % (36-54); HEMOGLOBIN 9.5 g/dL (14.0-18.0); LYMPHOCYTES % (AUTO) 11.2 % (20.5-51.5); MEAN CORPUSCULAR HEMOGLOBIN 30 pg (27-31); MEAN CORPUSCULAR HGB CONC 30 % (32-36); MEAN CORPUSCULAR VOLUME 98 fL (79.0-98.0); MONOCYTES # (AUTO) 0.8 K/uL (0.0-1.0); MONOCYTES % (AUTO) 8.4 % (1.7-9.3); NEUTROPHILS # (AUTO) 7.3 K/uL (1.8-7.7); NEUTROPHILS % (AUTO) 79.2 % (40.0-70.0); PLATELET COUNT (AUTO) 318 K/uL (130-430); RED BLOOD CELL COUNT(AUTO) 3.21 MIL/uL (4.2-6.2); RED CELL DISTRIBUTION WIDTH 17.7 % (9.0-15.0); WHITE BLOOD COUNT (AUTO) 9.1 K/uL (4.8-10.8)
[2023-02-11 08:14] LABS: ANION GAP 6 (5-15); CALCIUM 8.2 mg/dL (8.4-11.0); CARBON DIOXIDE 29 mmol/L (23-29); CHLORIDE 108 mmol/L (98-107); CREATININE 1.88 mg/dL (0.55-1.30); GLUCOSE 156 mg/dL (74-106); POTASSIUM 5.2 mmol/L (3.5-5.1); SODIUM SERUM 143 mmol/L (136-145); UREA NITROGEN, BLOOD 40 mg/dL (8-21)
[2023-02-11] MEDS: PANTOPRAZOLE SODIUM 40 MG/VIAL (PROTONIX) IVP SCH (10:07)
[2023-02-11] MEDS: FOLIC ACID 1 MG TABLET PO SCH (10:09)
[2023-02-11] MEDS: amLODIPine BESYLATE 10 MG TABLET PO SCH (10:09)
[2023-02-11] MEDS: MULTIVITAMINS TAB 1 TABLET PO SCH (10:09)
[2023-02-11] MEDS: HEPARIN SODIUM,PORCINE 5,000 UNITS/ML VIAL SUBCUT SCH ×2 (10:11→23:00)
[2023-02-11] MEDS: LANOLIN ALCOHOL/MO/W.PET/CERES 57 GM CREAM..G. TP SCH ×2 (10:12→21:00)
[2023-02-11] MEDS: LORazepam 2 MG/ML VIAL IVP PRN ×3 (11:20→19:57)
[2023-02-11] MEDS: ATORVASTATIN 20 MG TABLET PO SCH (23:01)
[2023-02-11] MEDS: HYDROcodone/ACETAMIN 5-325 MG TAB (NORCO/ VICODIN) PO PRN (23:03)
[2023-02-12] VITALS (17 sets, daily range): BP systolic 130–147; PULSE 90–130; RESP 18–20; TEMP 97.6–99.6; O2SAT 95–97
[2023-02-12] MEDS: NACL 0.9% 1,000 ML IV SCH ×3 (04:05→19:51)
[2023-02-12 05:06] LABS: BASOPHILS # (AUTO) 0.1 K/uL (0.0-0.2); BASOPHILS % (AUTO) 0.6 % (0.0-2.0); EOSINOPHILS # (AUTO) 0.2 K/uL (0.0-0.4); EOSINOPHILS % (AUTO) 2.3 % (0.0-4.0); HEMATOCRIT 31.9 % (36-54); LYMPHOCYTES # (AUTO) 1.4 K/uL (1.0-5.5); LYMPHOCYTES % (AUTO) 13.3 % (20.5-51.5); MEAN CORPUSCULAR HEMOGLOBIN 30 pg (27-31); MEAN CORPUSCULAR HGB CONC 31 % (32-36); MEAN CORPUSCULAR VOLUME 96 fL (79.0-98.0); MONOCYTES % (AUTO) 9.2 % (1.7-9.3); NEUTROPHILS # (AUTO) 8.1 K/uL (1.8-7.7); NEUTROPHILS % (AUTO) 74.6 % (40.0-70.0); PLATELET COUNT (AUTO) 345 K/uL (130-430); RED BLOOD CELL COUNT(AUTO) 3.34 MIL/uL (4.2-6.2); WHITE BLOOD COUNT (AUTO) 10.8 K/uL (4.8-10.8)
[2023-02-12 05:17] LABS: ANION GAP 7 (5-15); CALCIUM 8.5 mg/dL (8.4-11.0); CARBON DIOXIDE 30 mmol/L (23-29); CHLORIDE 110 mmol/L (98-107); CREATININE 1.71 mg/dL (0.55-1.30); GLUCOSE 145 mg/dL (74-106); POTASSIUM 4.8 mmol/L (3.5-5.1); SODIUM SERUM 147 mmol/L (136-145); UREA NITROGEN, BLOOD 38 mg/dL (8-21)
[2023-02-12] MEDS: FOLIC ACID 1 MG TABLET PO SCH (10:36)
[2023-02-12] MEDS: PANTOPRAZOLE SODIUM 40 MG/VIAL (PROTONIX) IVP SCH (10:36)
[2023-02-12] MEDS: MULTIVITAMINS TAB 1 TABLET PO SCH (10:37)
[2023-02-12] MEDS: amLODIPine BESYLATE 10 MG TABLET PO SCH (10:38)
[2023-02-12] MEDS: LANOLIN ALCOHOL/MO/W.PET/CERES 57 GM CREAM..G. TP SCH ×2 (10:40→21:00)
[2023-02-12] MEDS: HEPARIN SODIUM,PORCINE 5,000 UNITS/ML VIAL SUBCUT SCH ×2 (10:42→21:16)
[2023-02-12] MEDS: ATORVASTATIN 20 MG TABLET PO SCH (21:16)
[2023-02-12] MEDS: LORazepam 2 MG/ML VIAL IVP PRN (21:17)
[2023-02-13] VITALS (13 sets, daily range): BP systolic 133–162; PULSE 92–104; RESP 16–20; TEMP 98.3–100; O2SAT 94–96
[2023-02-13] MEDS: MORPHINE 4 MG INJ. 4 MG/ML VIAL IVP PRN (01:43)
[2023-02-13] MEDS: NACL 0.9% 1,000 ML IV SCH ×2 (01:51→11:58)
[2023-02-13] MEDS: PANTOPRAZOLE SODIUM 40 MG/VIAL (PROTONIX) IVP SCH (08:56)
[2023-02-13] MEDS: MULTIVITAMINS TAB 1 TABLET PO SCH (08:56)
[2023-02-13] MEDS: amLODIPine BESYLATE 10 MG TABLET PO SCH (08:57)
[2023-02-13] MEDS: FOLIC ACID 1 MG TABLET PO SCH (08:57)
[2023-02-13] MEDS: LANOLIN ALCOHOL/MO/W.PET/CERES 57 GM CREAM..G. TP SCH ×2 (08:58→21:57)
[2023-02-13] MEDS: HEPARIN SODIUM,PORCINE 5,000 UNITS/ML VIAL SUBCUT SCH ×2 (08:59→22:01)
[2023-02-13] MEDS: ATORVASTATIN 20 MG TABLET PO SCH (21:57)
[2023-02-14] VITALS (15 sets, daily range): BP systolic 140–167; PULSE 89–107; RESP 16–21; TEMP 98.2–99.5; O2SAT 94–98
[2023-02-14] MEDS: LORazepam 2 MG/ML VIAL IVP PRN (00:15)
[2023-02-14] MEDS: NACL 0.9% 1,000 ML IV SCH (05:15)
[2023-02-14 07:20] LABS: ALANINE AMINOTRANSFERASE 45 U/L (12-78); ALBUMIN 1.9 g/dL (3.4-4.8); ANION GAP 6 (5-15); ASPARTATE AMINOTRANSFERASE 31 U/L (10-37); CALCIUM 8.2 mg/dL (8.4-11.0); CARBON DIOXIDE 29 mmol/L (23-29); CHLORIDE 110 mmol/L (98-107); CREATININE 1.32 mg/dL (0.55-1.30); GLUCOSE 138 mg/dL (74-106); POTASSIUM 4.5 mmol/L (3.5-5.1); SODIUM SERUM 145 mmol/L (136-145); TOTAL BILIRUBIN 0.5 mg/dL (0.0-1.0); TOTAL PROTEIN, SERUM 6.3 g/dL (6.4-8.3); UREA NITROGEN, BLOOD 28 mg/dL (8-21)
[2023-02-14] MEDS: MULTIVITAMINS TAB 1 TABLET PO SCH (08:36)
[2023-02-14] MEDS: amLODIPine BESYLATE 10 MG TABLET PO SCH (08:36)
[2023-02-14] MEDS: PANTOPRAZOLE SODIUM 40 MG/VIAL (PROTONIX) IVP SCH (08:36)
[2023-02-14] MEDS: FOLIC ACID 1 MG TABLET PO SCH (08:36)
[2023-02-14] MEDS: MORPHINE 4 MG INJ. 4 MG/ML VIAL IVP PRN (08:37)
[2023-02-14] MEDS: HEPARIN SODIUM,PORCINE 5,000 UNITS/ML VIAL SUBCUT SCH (08:40)
[2023-02-14] MEDS: LANOLIN ALCOHOL/MO/W.PET/CERES 57 GM CREAM..G. TP SCH (08:44)
[2023-02-14 09:02] LABS: BASOPHILS % (AUTO) 0.4 % (0.0-2.0); EOSINOPHILS # (AUTO) 0.3 K/uL (0.0-0.4); EOSINOPHILS % (AUTO) 2.6 % (0.0-4.0); HEMATOCRIT 32.4 % (36-54); LYMPHOCYTES # (AUTO) 0.9 K/uL (1.0-5.5); LYMPHOCYTES % (AUTO) 7.3 % (20.5-51.5); MEAN CORPUSCULAR HEMOGLOBIN 29 pg (27-31); MEAN CORPUSCULAR HGB CONC 31 % (32-36); MEAN CORPUSCULAR VOLUME 95 fL (79.0-98.0); MONOCYTES % (AUTO) 7.9 % (1.7-9.3); NEUTROPHILS # (AUTO) 10.1 K/uL (1.8-7.7); NEUTROPHILS % (AUTO) 81.8 % (40.0-70.0); PLATELET COUNT (AUTO) 387 K/uL (130-430); RED BLOOD CELL COUNT(AUTO) 3.41 MIL/uL (4.2-6.2); RED CELL DISTRIBUTION WIDTH 16.9 % (9.0-15.0); WHITE BLOOD COUNT (AUTO) 12.3 K/uL (4.8-10.8)
[2023-02-14] MEDS ORDERED: IPRATROPIUM/ALBUTEROL SULFATE 3 ML AMPUL.NEB (DUONEB) INH SCH (19:00)
== END 2023-02-14 21:26 | DRG 4 ==
LOC: SED 20:21 → STU 22:07 → SMU 01-26 01:00 → SIC 01-29 11:25 → STU 02-10 16:48
PROVIDERS: ADMIT Internal Medicine; ATTEND Internal Medicine
PROC: 05HY33Z Insertion of Infusion Device into Upper Vein, Percutaneous Approach (ICD-10-PCS; 2023-01-26)
PROC: B54MZZA Ultrasonography of Right Upper Extremity Veins, Guidance (ICD-10-PCS; 2023-01-26)
PROC: 0DB78ZX Excision of Stomach, Pylorus, Via Natural or Artificial Opening Endoscopic, Diagnostic (ICD-10-PCS; 2023-01-29)
PROC: 5A1955Z Respiratory Ventilation, Greater than 96 Consecutive Hours (ICD-10-PCS; 2023-01-29)
PROC: 0DH63UZ Insertion of Feeding Device into Stomach, Percutaneous Approach (ICD-10-PCS; 2023-01-30)
PROC: 5A1955Z Respiratory Ventilation, Greater than 96 Consecutive Hours (ICD-10-PCS; 2023-02-03)
PROC: 0BH17EZ Insertion of Endotracheal Airway into Trachea, Via Natural or Artificial Opening (ICD-10-PCS; 2023-02-03)
PROC: 0B110F4 Bypass Trachea to Cutaneous with Tracheostomy Device, Open Approach (ICD-10-PCS; principal; 2023-02-06 09:40)
DX: A41.9 Sepsis, unspecified organism (principal); J96.01 Acute respiratory failure with hypoxia; N17.0 Acute kidney failure with tubular necrosis; J18.9 Pneumonia, unspecified organism; I13.0 Hypertensive heart and chronic kidney disease with heart failure and stage 1 through stage 4 chronic kidney disease, or unspecified chronic kidney disease; E44.0 Moderate protein-calorie malnutrition; I48.20 Chronic atrial fibrillation, unspecified; F03.94 Unspecified dementia, unspecified severity, with anxiety; G81.91 Hemiplegia, unspecified affecting right dominant side; R00.1 Bradycardia, unspecified; E66.01 Morbid (severe) obesity due to excess calories; Z20.822 Contact with and (suspected) exposure to COVID-19; J44.9 Chronic obstructive pulmonary disease, unspecified; E86.0 Dehydration; I25.10 Atherosclerotic heart disease of native coronary artery without angina pectoris; S09.90XA Unspecified injury of head, initial encounter; W18.39XA Other fall on same level, initial encounter; I50.9 Heart failure, unspecified; N18.9 Chronic kidney disease, unspecified; R13.10 Dysphagia, unspecified; N40.0 Benign prostatic hyperplasia without lower urinary tract symptoms; Z88.7 Allergy status to serum and vaccine; Z79.899 Other long term (current) drug therapy; Z87.891 Personal history of nicotine dependence; Z68.34 Body mass index [BMI] 34.0-34.9, adult; Z79.82 Long term (current) use of aspirin; Y93.89 Activity, other specified; Y92.89 Other specified places as the place of occurrence of the external cause; Y99.8 Other external cause status
CPT/HCPCS: 36415; 36600; 70450-TC; 71045; 74018; 74150-TC; 76376; 76604; 80048; 80053; 81000; 82803; 83605; 83735; 83880; 84100; 84478; 84484; 85025; 85610-TC; 85730-TC; 87040; 87081; 87086; 88305; 88312; 88313; 92610-GN; 93005; 93306; 94002; 94003; 94668; 94760; 97110-GP; 97112-GP; 97530-GP; 99291; 99292; C1751; C1769; C9113; G0378; J0330; J0690; J0696; J1170; J1265; J1644; J1650; J1940; J2060; J2270; J2370; J2405; J2704; J3010; J3465; J3480; J3490; J7060; Q9964